=== PATIENT | male | born 2005 | race Caucasian/White ===

== ENCOUNTER 2025-03-15 20:23 | Emergency (ER) | payer BC, SELFPAY ==
[2025-03-15 20:31] VITALS: BP 117/78
== END 2025-03-15 21:14 | disposition left against medical advice (07) ==
LOC: EMR 20:23
PROVIDERS: EMERGENCY PHYSICIAN Emergency Medicine
DX: R42 Dizziness and giddiness (principal); R20.0 Anesthesia of skin; K08.89 Other specified disorders of teeth and supporting structures; Z53.21 Procedure and treatment not carried out due to patient leaving prior to being seen by health care provider
CPT/HCPCS: 93005